=== PATIENT | female | born 1990 | race Caucasian/White ===

== ENCOUNTER 2020-08-10 13:23 | Emergency (ER) | payer MEDICAID ==
[2020-08-10] MEDS ORDERED: Ondansetron 4 MG/2 ML SDV IVPUSH ONE (13:41)
--- NOTE | 2020-08-10 13:46 | EDM.PDOC ---
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 Stated Complaint: NEEDS IV FLUIDS Time Seen by Provider: 08/10/20 13:30 Source of Information: Reports: Patient History Limitations: Reports: No Limitations - History of Present Illness INITIAL COMMENTS - FREE TEXT/NARRATIVE: c/o n/v pt states "I am dehydrated and need IV fluids" at 11w gestation , saw Dr Krishan Guerrero in [place] 3d ago who is following her preg, he gave her IVF and said to come to ED if she got dehydrated Dr Guerrero also gave her an Rx for promethazine PO (pt not sure of the mg's) to take if the Reglan was not working, pt has not taken promethazine as she says she has anxiety and was worried re taking anxiety med and promethazine at the same time pt taking Reglan BID x 2w, in AM and at 2-3p, has taken one dose today ate bagel for bfast, not able to eat otherwise, not keeping fluids down pt states labs have been fine with normal FHT in office 3d ago has had n/v with all of her pregnancies - Related Data Allergies Allergy/AdvReac Type Severity Reaction Status Date / Time amoxicillin Allergy Rash Verified 08/10/20 13:29 Penicillins Allergy Rash Verified 08/10/20 13:29 Sulfa (Sulfonamide Allergy Cannot Verified 08/10/20 13:29 Antibiotics) Remember Home Meds: Home Meds Citalopram [Citalopram HBr] 40 mg PO DAILY PRN 08/10/20 [History] Metoclopramide HCl 10 mg PO Q6H PRN 08/10/20 [History] Promethazine [Phenergan] 25 mg PO Q8H PRN 08/10/20 [History] cephALEXin [Cephalexin] 250 mg PO TID #9 capsule 08/10/20 [Rx] Past Medical History - Past Health History Medical/Surgical History: Denies Medical/Surgical History ED ROS GENERAL - Review of Systems Review Of Systems: See Below Constitutional: Reports: No Symptoms HEENT: Reports: No Symptoms Respiratory: Reports: No Symptoms Cardiovascular: Reports: No Symptoms Endocrine: Reports: No Symptoms GI/Abdominal: Reports: Nausea, Vomiting : Reports: No Symptoms Musculoskeletal: Reports: No Symptoms Skin: Reports: No Symptoms Neurological: Reports: No Symptoms Psychiatric: Reports: No Symptoms Hematologic/Lymphatic: Reports: No Symptoms Immunologic: Reports: No Symptoms ED EXAM - Physical Exam Exam: See Below Exam Limited By: No Limitations General Appearance: Alert, WD/WN, No Apparent Distress Ears: Normal External Exam Nose: Normal Inspection Throat/Mouth: Normal Inspection Head: Atraumatic, Normocephalic Neck: Normal Inspection, Supple, Non-Tender, Full Range of Motion Respiratory/Chest: No Respiratory Distress Cardiovascular: Regular Rate, Rhythm GI/Abdominal Exam: Other (gravid, soft, NT) Extremities: Normal Inspection, Normal Range of Motion, Non-Tender, No Pedal Edema, Other (skin turgor does not appear dec'd) Neurological: Alert, Oriented, CN II-XII Intact, Normal Cognition, Normal Gait, No Motor/Sensory Deficits Psychiatric: Normal Affect Skin Exam: Warm, Dry, Intact, Normal Color, No Rash Lymphatic: No Adenopathy Course - Orders/Labs/Meds Orders: Active Orders 24 hr Category Date Time Status CULTURE URINE [RM] Stat Lab 08/10/20 15:16 Ordered Sodium Chloride 0.9% [Normal Saline] 1,000 ml Med 08/10/20 13:45 Ordered IV ASDIRECTED Medication Orders Sodium Chloride (Normal Saline) 1,000 mls @ 999 mls/hr IV ASDIRECTED HUDSON Last Admin: 08/10/20 14:10 Dose: 999 mls/hr Documented by: Labs: Laboratory Tests 08/10/20 Range/Units 14:10 Urine Color Yellow (YELLOW) Urine Appearance Cloudy (CLEAR) Urine pH 5.0 (5.0-6.5) Ur Specific [place] 1.030 H (1.010-1.025) Urine Protein Trace (NEGATIVE) mg/dL Urine Glucose (UA) Normal (NORMAL) mg/dL Urine Ketones 15 H (NEGATIVE) mg/dL Urine Occult Blood Negative (NEGATIVE) Urine Nitrite Negative (NEGATIVE) Urine Bilirubin Small H (NEGATIVE) Urine Urobilinogen 1 H (NEGATIVE) mg/dL Ur Leukocyte Esterase Negative (NEGATIVE) Urine RBC 0-5 (0-5) Urine WBC 0-5 (0-5) Ur Squamous Epith Cells Few H (NS,R,O) Amorphous Sediment Many Urine Bacteria Many H (NS) Meds: Medications Generic Name Dose Route Start Last Admin Trade Name Freq PRN Reason Stop Dose Admin Sodium Chloride 1,000 mls @ 999 mls/hr 08/10/20 13:45 08/10/20 14:10 Normal Saline IV 999 mls/hr ASDIRECTED HUDSON Administration Discontinued Medications Generic Name Dose Route Start Last Admin Trade Name Pinky PRN Reason Stop Dose Admin Ondansetron HCl 4 mg 08/10/20 13:41 08/10/20 14:10 Ondansetron 4 Mg/2 Ml Sdv IVPUSH 08/10/20 13:42 4 mg ONETIME ONE Administration - Re-Assessments/Exams Free Text/Narrative Re-Assessment/Exam: 08/10/20 15:35 u/a with 15 mg/dl ketones and SQ 1.030 pt requested a 2nd liters of IVF, had received only one in [place] 4d ago and did not think that was eough felt better after 1st liter NS, however says she stills feel weak N gone after Zofran pt says she has Zofran, Reglan and promethazine at home, did not need additional Rx's pt agrees to return to ED if having additional sxs, she understands that she can just get IVF with nursing with an order from Dr Keating Departure - Departure Time of Disposition: 15:50 Disposition: Home, Self-Care 01 Condition: Good Clinical Impression: Dehydration, Ketonuria, Bacteria in urine, Nausea and vomiting during , First trimester - Discharge Information *PRESCRIPTION DRUG MONITORING PROGRAM REVIEWED*: Not Applicable *COPY OF PRESCRIPTION DRUG MONITORING REPORT IN PATIENT NEETA: Not Applicable Prescriptions: cephALEXin [Cephalexin] 250 mg PO TID #9 capsule Referrals: Todd Keating MD [Ordering Only Provider] - Forms: ED Department Discharge Additional Instructions: For bacteria in urine, take cephalexin 250 mg 1 capsule 3 times a day for [address] Keating in 3 weeks as scheduled, earlier as needed. Increase fluids. Continue nausea meds at home as prescribed. Sepsis Event Note (ED) - Evaluation Sepsis Screening Result: No Definite Risk - My Orders Last 24 Hours: My Active Orders 08/10/20 13:45 Sodium Chloride 0.9% [Normal Saline] 1,000 ml IV ASDIRECTED 08/10/20 15:16 CULTURE URINE [RM] Stat - Assessment/Plan Last 24 Hours: My Active Orders 08/10/20 13:45 Sodium Chloride 0.9% [Normal Saline] 1,000 ml IV ASDIRECTED 08/10/20 15:16 CULTURE URINE [RM] Stat
[2020-08-10] MEDS: Sodium Chloride 0.9% 1,000 ML IV SCH ×2 (14:10→15:11)
[2020-08-10 15:37] VITALS: PULSE 86
[2020-08-10 15:39] VITALS: BP 152/93
== END 2020-08-10 16:20 | disposition home or self-care (01) ==
LOC: FB.ED 13:23
DX: O21.9 Vomiting of pregnancy, unspecified (principal); O21.1 Hyperemesis gravidarum with metabolic disturbance; O99.891 Other specified diseases and conditions complicating pregnancy; E86.0 Dehydration; R82.4 Acetonuria; R82.71 Bacteriuria; Z88.0 Allergy status to penicillin; Z88.1 Allergy status to other antibiotic agents; Z3A.11 11 weeks gestation of pregnancy
CPT/HCPCS: 81001; 87086; 96374; 99284; J2405; J7030